=== PATIENT | male | born 1965 | race Caucasian/White ===

== ENCOUNTER → 2016-05-31 | Outpatient (CLI) | payer OTHER ==
[~2016-05-31] MED LIST: ALBU1AER9 INH; ALFU1TAB2 PO; CITA40TA12 PO; CLR10 PO; CNT PO; FLV1 PO; LCTS240 PO; LISI40TA PO; MONT1TAB5 PO; PANT40TA PO; PRLNL PO; PROP20TA66 PO; THM100 PO
--- NOTE | 2016-05-31 08:58 | DIAGNOSTIC IMAGING REPORT ---
ABDOMINAL ULTRASOUND, RIGHT UPPER QUADRANT HISTORY: HEPATIC ENCEPHALOPATHY; CIRRHOSIS. COMPARISON: Abdominal ultrasound 12/01/2015. FINDINGS: Pancreas: The pancreas demonstrates a normal echotexture. Liver: The liver is echogenic consistent with fatty change. There is a 4.5 x 3.6 x 2.0 cm exophytic heterogeneous lesion within the liver adjacent to the gallbladder. This is not significantly changed Gallbladder: 5 mm nonmobile echogenic focus is again noted. This likely represents a small polyp. CBD: 4 mm. Right kidney: No hydronephrosis. IMPRESSION: 1. No change in the 4.5 x 3.6 x 2.0 cm exophytic mass within the liver. 2. A 5 mm nonmobile echogenic focus within the gallbladder which likely represents a polyp. This is not significantly changed. Electronically signed by: Alexandru Chavez M.D. 05/31/2016 8:57 AM Dictated Date/Time: 05/31/2016 8:53 AM
== END | disposition home or self-care (01) ==
LOC: C.ULTRBC 08:07
PROVIDERS: ATTEND Registered Nurse
DX: K72.90 Hepatic failure, unspecified without coma (principal); K70.30 Alcoholic cirrhosis of liver without ascites; R16.0 Hepatomegaly, not elsewhere classified

== ENCOUNTER → 2016-11-22 | Outpatient (CLI) | payer OTHER ==
--- NOTE | 2016-11-22 08:33 | DIAGNOSTIC IMAGING REPORT ---
(LIVER) ABDOMEN LIMITED CLINICAL HISTORY: 51 years-old Male presenting with liver cirrhosis. TECHNIQUE: Real-time grayscale and limited color Doppler ultrasound imaging of the abdomen limited to the right upper quadrant was performed. COMPARISON: 05/31/2016. FINDINGS: Pancreas: Largely obscured secondary to overlying bowel gas. Liver: Hyperechogenic parenchyma with heterogeneous echotexture, likely indicating fibrosis or steatosis. The liver measures 15.9 cm in maximal sagittal dimension. The previously noted exophytic mass along the inferior left hepatic lobe is not appreciated on the current exam. Main portal vein patent with normal directional flow. Biliary: No intrahepatic biliary ductal dilatation. Common bile duct measures up to 5 mm in diameter. Gallbladder: Echogenic focus in the gallbladder is in a dependent location and demonstrate shadowing on the current exam, consistent with a gallstone. No convincing evidence of a gallbladder polyp. Expansion of fat within the gallbladder fossa. No evidence of gallbladder wall thickening, gallbladder distention, or pericholecystic fluid or inflammatory change. Right kidney: Normal in appearance. No hydronephrosis. Ascites: None. IMPRESSION: 1. Hyperechogenic hepatic parenchyma with heterogeneous echotexture, likely indicating fibrosis or steatosis. 2. No sonographic evidence of hepatic mass. If there is continuing clinical concern, contrast-enhanced MR is more sensitive for this diagnosis. 3. The echogenic focus in the gallbladder is most consistent with a gallstone. No convincing evidence of a gallbladder polyp. Electronically signed by: Ulysses Miller M.D. 11/22/2016 8:31 AM Dictated Date/Time: 11/22/2016 8:26 AM
== END | disposition home or self-care (01) ==
LOC: C.ULTR 07:46
PROVIDERS: ATTEND Registered Nurse
DX: K70.30 Alcoholic cirrhosis of liver without ascites (principal); K76.89 Other specified diseases of liver

== ENCOUNTER → 2017-05-23 | Outpatient (CLI) | payer OTHER ==
--- NOTE | 2017-05-23 10:43 | DIAGNOSTIC IMAGING REPORT ---
(LIVER) ABDOMEN LIMITED CLINICAL HISTORY: K70.30 Liver cirrhosis, [id number] hepatic mass TECHNIQUE: Ultrasound COMPARISON STUDY: 11/22/2016, 05/31/2016, 06/11/2015. FINDINGS: Solitary gallstone within the gallbladder. Gallbladder wall 3 mm at. Common bile duct 5 mm. Fatty infiltration of liver. Heterogeneous internal architecture. No well-defined mass by ultrasound criteria. Pancreas is poorly seen. Right kidney is negative for hydronephrosis. IMPRESSION: 1. Heterogeneous liver suggesting fatty infiltration and potential early cirrhotic change. 2. Solitary gallstone with normal caliber bile ducts. 3. The echogenic nodule previously described involving the right hepatic lobe is not well seen on this exam. The above report was generated using voice recognition software. It may contain grammatical, syntax or spelling errors. Electronically signed by: Gurvinder Carrillo M.D. 05/23/2017 10:41 AM Dictated Date/Time: 05/23/2017 10:37 AM
== END | disposition home or self-care (01) ==
LOC: C.ULTR 08:57
PROVIDERS: ATTEND Registered Nurse
DX: K70.30 Alcoholic cirrhosis of liver without ascites (principal); K80.20 Calculus of gallbladder without cholecystitis without obstruction